=== PATIENT | male | born 1970 | race Caucasian/White ===

== ENCOUNTER 2017-02-02 12:09 | Emergency (ER) | payer OTHER, MEDICAID ==
[~2017-02-02] VITALS: Ht 177.8 cm; Wt 99.8 kg
[2017-02-02 12:59] LABS: *BILIRUBIN,URIN NEGATIVE (NEGATIVE); *BLOOD, URINE Trace-lysed (NEGATIVE); *CLARITY,URINE CLEAR (CLEAR); *COLOR,URINE YELLOW (YELLOW); *KETONES,URINE NEGATIVE (NEGATIVE); *PROTEIN,URINE NEGATIVE (NEGATIVE); *UROBILINOGEN,URINE 0.2 E.U./dl (NORMAL); LEUKOCYTE ESTERASE ,URINE NEGATIVE (NEGATIVE); NITRITE, URINE NEGATIVE (NEGATIVE)
[2017-02-02 13:03] LABS: UGLUCOSE 2+ (NEGATIVE)
[2017-02-02 13:07] LABS: BACTERIA,URINE FEW /HPF (NONE SEEN); SQUAMOUS EPITHELIAL CELL,UR FEW /HPF (NONE SEEN)
--- NOTE | 2017-02-02 13:15 | NUR ---
Patient discharged to home in stable conditon. Written and verbal after care instructions given. Patient verbalizes understanding of instructions. Stressed f/u with pmd.
== END 2017-02-02 13:16 | disposition home or self-care (01) ==
LOC: ER 12:09
DX: S90.821A Blister (nonthermal), right foot, initial encounter (principal); E11.9 Type 2 diabetes mellitus without complications; I10 Essential (primary) hypertension; E78.5 Hyperlipidemia, unspecified; F10.20 Alcohol dependence, uncomplicated; Z88.6 Allergy status to analgesic agent; X58.XXXA Exposure to other specified factors, initial encounter; Y93.89 Activity, other specified; Y99.8 Other external cause status; Y92.89 Other specified places as the place of occurrence of the external cause
CPT/HCPCS: 81001; 82962; 99283; A4663

== ENCOUNTER 2017-05-29 08:04 | Emergency (ER) | payer MEDICAID, OTHER ==
[~2017-05-29] VITALS: Ht 175.3 cm; Wt 124.7 kg
--- NOTE | 2017-05-29 08:34 | NUR ---
Accuchek = 244, pt states he has not taken his Metformin for a few months, Dr. Chauhan notified.
[2017-05-29 09:02] LABS: *BLOOD, URINE 1+ (NEGATIVE); *COLOR,URINE YELLOW (YELLOW); *KETONES,URINE 3+ (NEGATIVE); *PROTEIN,URINE 2+ (NEGATIVE); LEUKOCYTE ESTERASE ,URINE TRACE (NEGATIVE); NITRITE, URINE NEGATIVE (NEGATIVE)
[2017-05-29 09:12] LABS: *BILIRUBIN,URIN NEGATIVE (NEGATIVE); *CLARITY,URINE HAZY (CLEAR); UGLUCOSE 2+ (NEGATIVE)
[2017-05-29 09:14] LABS: BACTERIA,URINE FEW /HPF (NONE SEEN); SQUAMOUS EPITHELIAL CELL,UR FEW /HPF (NONE SEEN)
[2017-05-29 09:36] LABS: BASOPHILS # (AUTO) 0.1 K/uL (0.0-8.0); BASOPHILS % (AUTO) 0.8 % (0.0-2.0); EOSINOPHILS # (AUTO) 0.1 K/uL (0.0-0.7); EOSINOPHILS % (AUTO) 1.2 % (0.0-7.0); HEMATOCRIT 50.2 % (40-50); HEMOGLOBIN 17.4 G/DL (14.0-18.0); LYMPHOCYTES # (AUTO) 1.4 K/UL (0.8-4.8); LYMPHOCYTES % (AUTO) 21.4 % (20.5-51.5); MEAN CORPUSCULAR HEMOGLOBIN 31.9 UUG (27.0-31.0); MEAN CORPUSCULAR HGB CONC 35 g/dL (32.0-37.0); MEAN CORPUSCULAR VOLUME 91.9 FL (82.0-92.0); MONOCYTES # (AUTO) 0.5 K/UL (0.1-1.30); MONOCYTES % (AUTO) 7.2 % (0.0-11.0); NEUTROPHILS # (AUTO) 4.3 K/UL (1.8-8.9); NEUTROPHILS % (AUTO) 69.4 % (38.5-71.5); PLATELET COUNT (AUTO) 112 K/UL (150-450); RED BLOOD CELL COUNT(AUTO) 5.47 MIL/UL (4.7-6.1); WHITE BLOOD COUNT (AUTO) 6.4 K/UL (4.0-11.2)
[2017-05-29 09:43] LABS: CREATININE 0.7 mg/dL (0.6-1.3); POTASSIUM 4.1 mmol/L (3.5-5.1)
[2017-05-29 09:44] LABS: ETHANOL < 3 MG/DL (0-0)
[2017-05-29] MEDS ORDERED: IV NORMAL SALINE 1000 ML BAG IV ONE (09:45)
[2017-05-29 09:49] LABS: TOTAL PROTEIN, SERUM 8.5 g/dL (6.4-8.2)
--- NOTE | 2017-05-29 10:40 | NUR ---
Patient discharged to home in stable conditon. Written and verbal after care instructions given. Patient verbalizes understanding of instructions. Stressed follow up with pmd or return to ER for worsening s/s. Pt was given extensive ACI about management of DM by Dr. Chauhan and myself.
[2017-05-29 10:41] VITALS: BP 134/93
== END 2017-05-29 10:44 | disposition home or self-care (01) ==
LOC: ER 08:04
DX: E11.9 Type 2 diabetes mellitus without complications (principal); Z91.14 Patient's other noncompliance with medication regimen; F10.20 Alcohol dependence, uncomplicated; I10 Essential (primary) hypertension; E78.5 Hyperlipidemia, unspecified
CPT/HCPCS: 36415; 80053; 81001; 82962; 85025; 96360; 99284; A4663; G0480; J7030

== ENCOUNTER 2017-12-09 19:13 | Emergency (ER) | payer OTHER ==
[~2017-12-09] VITALS: Ht 175.3 cm; Wt 124.7 kg
--- NOTE | 2017-12-09 20:33 | NUR ---
pt walked into ED w/ c/o R eye pain x1 day. pt in no acute distress, speaking in clear and complete sentences. able to make needs known.
[2017-12-09] MEDS ORDERED: FLUORESCEIN SODIUM 1 MG STRIP ONE (23:26)
[2017-12-09] MEDS ORDERED: TETRACAINE HCL 0.5% OPHT DROP 2 ML BOTTLE ONE (23:26)
[2017-12-09] MEDS ORDERED: TETRACAINE HCL 0.5% OPHT DROP 2 ML BOTTLE OP ONE (23:30)
[2017-12-09] MEDS ORDERED: FLUORESCEIN SODIUM 1 MG STRIP OP ONE (23:30)
[2017-12-10 07:19] VITALS: BP 138/88
== END 2017-12-10 01:15 | disposition home or self-care (01) ==
LOC: ER 19:13
DX: H40.20X0 Unspecified primary angle-closure glaucoma, stage unspecified (principal); I10 Essential (primary) hypertension; E11.9 Type 2 diabetes mellitus without complications; Z88.5 Allergy status to narcotic agent; Z88.8 Allergy status to other drugs, medicaments and biological substances
CPT/HCPCS: A4663

== ENCOUNTER 2018-11-04 11:12 | Inpatient (IN) | payer OTHER ==
[~2018-11-04] VITALS: Ht 172.7 cm; Wt 122.5 kg
[2018-11-04] MEDS ORDERED: IV NORMAL SALINE 1000 ML BAG IV ONE (11:45)
[2018-11-04] MEDS ORDERED: CLINDAMYCIN PHOSPHATE IV 600 MG in IV DEXTROSE 5% 100 ML IV ONE (11:45)
[2018-11-04] MEDS ORDERED: VANCOMYCIN IV 1,000 MG in IV DEXTROSE 5% 250 ML IV ONE (11:45)
[2018-11-04] MEDS ORDERED: VANCOMYCIN IV 200 ML ONE (11:56)
[2018-11-04] MEDS ORDERED: CLINDAMYCIN PHOSPHATE 600 MG/4 ML VIAL ONE (11:56)
[2018-11-04 12:03] LABS: BASOPHILS # (AUTO) 0.1 K/uL (0.0-8.0); BASOPHILS % (AUTO) 0.9 % (0.0-2.0); EOSINOPHILS # (AUTO) 0.1 K/uL (0.0-0.7); EOSINOPHILS % (AUTO) 1.3 % (0.0-7.0); HEMATOCRIT 43.4 % (36.7-47.1); HEMOGLOBIN 15.4 g/dL (12.5-16.3); LYMPHOCYTES # (AUTO) 1.8 K/uL (20.0-40.0); LYMPHOCYTES % (AUTO) 29.7 % (20.5-51.5); MEAN CORPUSCULAR HEMOGLOBIN 32.3 uug (23.8-33.4); MEAN CORPUSCULAR HGB CONC 36 g/dL (32.5-36.3); MEAN CORPUSCULAR VOLUME 91.1 fL (73.0-96.2); MONOCYTES # (AUTO) 0.3 K/uL (2.0-10.0); MONOCYTES % (AUTO) 5.4 % (0.0-11.0); NEUTROPHILS # (AUTO) 3.8 K/uL (1.8-8.9); NEUTROPHILS % (AUTO) 62.7 % (38.5-71.5); PLATELET COUNT (AUTO) 142 K/uL (152-348); RED BLOOD CELL COUNT(AUTO) 4.77 MIL/uL (4.06-5.63); WHITE BLOOD COUNT (AUTO) 6.1 K/uL (3.6-10.2)
[2018-11-04 12:10] LABS: CREATININE 0.8 mg/dL (0.6-1.3)
--- NOTE | 2018-11-04 12:12 | NUR ---
PT IS IN ROOM #2B. DR PUGH EVALUATED THE PT.
[2018-11-04 12:15] LABS: BILIRUBIN,DIRECT 0.2 mg/dL (0.0-0.2); BILIRUBIN,TOTAL 0.5 mg/dL (0.2-1.0); TOTAL PROTEIN, SERUM 8.8 g/dL (6.4-8.2)
[2018-11-04 13:50] VITALS: BP 110/74
--- NOTE | 2018-11-04 15:11 | NUR ---
REPORT WAS GIVEN TO RN M/S. PT WAS DRANSFERED TO ROOM #230.
[2018-11-04 15:50] VITALS: BP 130/85
--- NOTE | 2018-11-04 16:00 | NUR ---
48 year old male received from er via [facility] for cellulites of left foot.pt is axox3 .v/s are stable call light with in reach md called for admission orders
[2018-11-04] MEDS ORDERED: Z GUARD REMEDY PASTE 57 GM TUBE TOP PRN (19:15)
[2018-11-04] MEDS ORDERED: DEXTROSE 50% 50 ML DISP.SYRIN IV PRN (19:15)
[2018-11-04] MEDS ORDERED: ZOLPIDEM 5 MG TABLET PO PRN (19:15)
[2018-11-04] MEDS ORDERED: ONDANSETRON 4 MG/2 ML VIAL IV PRN (19:15)
[2018-11-04] MEDS ORDERED: MAGNESIUM HYDROXIDE 30 ML LIQUID UDC PO PRN (19:15)
--- NOTE | 2018-11-04 20:16 | NUR ---
CLINICAL PHARMACY NOTE: VANCOMYCIN PHARMACY TO DOSE Subjective: To start vancomycin in this 48 y/o male for indication of cellulitis Objective: wegith 122kg height 172cm BUN 7 Scr 0.8 Wbc 6.1 temp 98.3 1gm in ER 11/04 @ 1100 Assessment/Plan To start regimen of 2gm q10h for estimated torugh of 15.26, first dose tonight at 2100. Will order trough before 4th scheduled dose (not ordered). Will follow
[2018-11-04 20:45] VITALS: BP 129/77
[2018-11-04] MEDS: VANCOMYCIN IV 2,000 MG in IV DEXTROSE 5% 500 ML IV SCH (21:23)
[2018-11-04] MEDS: BLOOD SUGAR DIAGNOSTIC 1 EACH STRIP VI SCH (22:21)
[2018-11-04] MEDS: INSULIN REGULAR, HUMAN 300 UNIT/3 ML VIAL SQ PRN (22:28)
[2018-11-05] MEDS: CLINDAMYCIN PHOSPHATE IV 600 MG in IV DEXTROSE 5% 100 ML IV SCH ×4 (00:25→23:46)
[2018-11-05 05:06] VITALS: BP 139/74
[2018-11-05] MEDS: VANCOMYCIN IV 2,000 MG in IV DEXTROSE 5% 500 ML IV SCH ×2 (05:44→16:31)
[2018-11-05 06:29] LABS: BASOPHILS % (AUTO) 0.3 % (0.0-2.0); EOSINOPHILS # (AUTO) 0.1 K/uL (0.0-0.7); HEMATOCRIT 40.4 % (36.7-47.1); HEMOGLOBIN 14.5 g/dL (12.5-16.3); LYMPHOCYTES % (AUTO) 18.2 % (20.5-51.5); MEAN CORPUSCULAR HEMOGLOBIN 32.2 uug (23.8-33.4); MEAN CORPUSCULAR HGB CONC 36 g/dL (32.5-36.3); MONOCYTES # (AUTO) 0.4 K/uL (2.0-10.0); MONOCYTES % (AUTO) 6.8 % (0.0-11.0); NEUTROPHILS # (AUTO) 4.2 K/uL (1.8-8.9); NEUTROPHILS % (AUTO) 73.7 % (38.5-71.5); PLATELET COUNT (AUTO) 124 K/uL (152-348); RED BLOOD CELL COUNT(AUTO) 4.49 MIL/uL (4.06-5.63); WHITE BLOOD COUNT (AUTO) 5.8 K/uL (3.6-10.2)
[2018-11-05] MEDS: PANTOPRAZOLE SODIUM 40 MG TABLET.DR PO SCH (06:40)
[2018-11-05] MEDS: BLOOD SUGAR DIAGNOSTIC 1 EACH STRIP VI SCH ×4 (06:40→22:05)
[2018-11-05 07:27] LABS: CREATININE 0.8 mg/dL (0.6-1.3); MAGNESIUM 1.4 mg/dL (1.8-2.4); PHOSPHOROUS 3.3 mg/dL (2.5-4.9); POTASSIUM 3.7 mmol/L (3.5-5.1)
[2018-11-05] MEDS: INSULIN REGULAR, HUMAN 300 UNIT/3 ML VIAL SQ PRN ×4 (09:06→22:05)
--- NOTE | 2018-11-05 10:11 | NUR ---
CLINICAL PHARMACY NOTE: VANCOMYCIN PHARMACY TO DOSE Subjective: To continue vancomycin in this 48 y/o male for indication of cellulitis Objective: weight 122kg height 172cm BUN 9 Scr 0.8 Wbc 5.8 temp 98.1 1gm in ER 11/04 @ 1100 Assessment/Plan Will continue same dose of vanco 2gm IVPB q10h for today. 3rd dose today at 1600. Will order trough before 4th scheduled dose (ordered for 11/06 at 0145am). Pharmacist shall review the level in am & adjust the dose if needed. Will follow Addendum: 11/05/18 at 1018 by RUMA HOLLINGSWORTH ADM RN HAS BEEN INFORMED TO HOLD 0215 AM DOSE IF VANCO TROUGH IS ABOVE 20 MCG/ML
[2018-11-05] MEDS: SODIUM HYPOCHLORITE 0.125% 473 ML BOTTLE TP SCH (10:45)
[2018-11-05] MEDS: MAGNESIUM SULFATE/D5W 100 ML IV SCH ×2 (10:48→11:39)
[2018-11-05] MEDS: MORPHINE SULFATE 4 MG/1 ML DISP.SYRIN IV PRN ×2 (10:48→11:34)
--- NOTE | 2018-11-05 11:15 | NUR ---
0700 RECEIVED REPORT FROM JOSEFINA HICKEY. ASSUMED CARE OF PATIENT. PATIENT IN BED RESTING WITH NO SIGNS OF DISTRESS OR DISCOMFORT AT THIS TIME. PATIENT VITALS SIGNS STABLE. PATIENT ALERT AND ORIENTED TIMES 3. [address] WITH DEBRIDEMENT OF THE LEFT FOOT. PATIENT TOLERATED WELL. 1100 PATIENT GIVEN MORPHINE 4MG IV PER DR ORDERS FOR PAIN 10/10 IN HIS LEFT FOOT. PATIENT ALSO GIVEN 2 BAGS MAGNESIUM IVPB PER DR ORDERS.PATIENT MEDICATION COMPLIANT WITH MEDICATIONS PATIENT DENIES PAIN AT THIS TIME. WILL CONTINUE TO MONITOR THROUGHOUT SHIFT. AVRIL RANDALL RN
[2018-11-05 11:58] VITALS: BP 134/87
--- NOTE | 2018-11-05 12:00 | NUR ---
RECEIVED HAND OFF REPRT FROM AVRIL HICKEY
[2018-11-05 16:00] VITALS: BP 110/79
[2018-11-05] MEDS: PROTEIN SUPPLEMENT (PROSTAT) 30 ML LIQUID PO SCH (16:31)
--- NOTE | 2018-11-05 19:45 | NUR ---
Received pt resting in bed, awake, alert and oriented x4. Discussed and reviewed plan of care with pt, pt cooperative with care. Pt denies pain or dizziness at this time. No acute distress noted. Antibiotic therapy noted. IV intact and patent with no s/s of redness or swelling. Safety precautions in place, call light within reach. Will continue to monitor.
[2018-11-05 20:52] VITALS: BP 131/88
[2018-11-05] MEDS: CULTURELLE CAPSULE PO SCH (21:00)
[2018-11-06] MEDS: MORPHINE SULFATE 4 MG/1 ML DISP.SYRIN IV PRN ×2 (00:47→04:47)
[2018-11-06] MEDS: VANCOMYCIN IV 2,000 MG in IV DEXTROSE 5% 500 ML IV SCH ×4 (01:36→20:48)
--- NOTE | 2018-11-06 02:15 | NUR ---
VANCO TROUGH LAB. 20.7. Vanco medication not administered this shift.
[2018-11-06 05:30] VITALS: BP 130/75
[2018-11-06] MEDS ORDERED: CLINDAMYCIN PHOSPHATE 600 MG/4 ML VIAL ONE (05:30)
[2018-11-06] MEDS: CLINDAMYCIN PHOSPHATE IV 600 MG in IV DEXTROSE 5% 100 ML IV SCH ×3 (05:50→22:57)
--- NOTE | 2018-11-06 06:17 | NUR ---
No significant changes t/o shift. Pain med given x2 with effect. Pt denies pain at this time. No acute distress noted. Call light within reach, will continue to monitor.
[2018-11-06] MEDS: PANTOPRAZOLE SODIUM 40 MG TABLET.DR PO SCH (06:18)
[2018-11-06] MEDS: BLOOD SUGAR DIAGNOSTIC 1 EACH STRIP VI SCH ×4 (06:25→20:59)
[2018-11-06] MEDS: MULTIVITAMINS,THERAPEUTIC TABLET PO SCH (08:00)
[2018-11-06] MEDS: ZINC SULFATE 220 MG CAPSULE PO SCH (08:00)
[2018-11-06] MEDS: ASCORBIC ACID 500 MG TABLET PO SCH (08:00)
[2018-11-06] MEDS: CULTURELLE CAPSULE PO SCH ×2 (08:00→20:48)
[2018-11-06] MEDS: INSULIN REGULAR, HUMAN 300 UNIT/3 ML VIAL SQ PRN ×4 (08:30→20:57)
[2018-11-06] MEDS: PROTEIN SUPPLEMENT (PROSTAT) 30 ML LIQUID PO SCH ×2 (08:33→16:22)
[2018-11-06] MEDS: SODIUM HYPOCHLORITE 0.125% 473 ML BOTTLE TP SCH (08:33)
--- NOTE | 2018-11-06 09:10 | NUR ---
PATIENT REFUSES WOUND TREATMENT AND WANTS TO DO TREATMENT WHEN PODIATRISTS COMES TO SEE HIM.
[2018-11-06 11:00] VITALS: BP 102/56
--- NOTE | 2018-11-06 12:26 | NUR ---
CLINICAL PHARMACY NOTE: VANCOMYCIN PHARMACY TO DOSE Subjective: To continue vancomycin in this 48 y/o male for indication of cellulitis Objective: weight 122kg height 172cm BUN 9 (2/2) Scr 0.8 (2/2) Wbc 5.8 (2/2) temp 98 trough today at 0200 20.7 Assessment/Plan Will adjust regimen to 2gm q12h for new estimated trough of 16.4, first dose today at 0900. Will check trough before 4th scheduled dose( not ordered yet). Will follow
[2018-11-06 15:18] VITALS: BP 112/65
--- NOTE | 2018-11-06 19:50 | NUR ---
Received pt resting comfortably in bed, awake, alert and oriented x4. Discussed and reviewed plan of care, pt cooperative. Pt denies pain, chills or dizziness at this time. No acute distress noted. Antibiotic therapy during shift. Comfort measures in place, call light within reach. Will continue to monitor and carry out all orders.
[2018-11-06 20:04] VITALS: BP 110/63
--- NOTE | 2018-11-06 20:19 | NUR ---
Patient is alert and oriented x4. Patient is compliant with medication adminstration and medical regimen. Patient denies any pain or discomfort and does not want to receive morphine. Patient is able to verbalize needs and able to ambulate to use the restroom. Patient's needs have been met. Will continue to monitor and endorse plan of care to shift lab technician nurse.
[2018-11-07] MEDS: CLINDAMYCIN PHOSPHATE IV 600 MG in IV DEXTROSE 5% 100 ML IV SCH ×3 (05:02→21:00)
[2018-11-07 05:20] VITALS: BP 120/59
[2018-11-07 05:47] LABS: *BILIRUBIN,URIN NEGATIVE (NEGATIVE); *BLOOD, URINE NEGATIVE (NEGATIVE); *CLARITY,URINE CLEAR (CLEAR); *COLOR,URINE YELLOW (YELLOW); *KETONES,URINE 1+ (NEGATIVE); LEUKOCYTE ESTERASE ,URINE NEGATIVE (NEGATIVE); NITRITE, URINE NEGATIVE (NEGATIVE); PH,URINE 6.5 (5.0-8.0)
[2018-11-07 05:51] LABS: UGLUCOSE 3+ (NEGATIVE)
[2018-11-07 06:11] LABS: BACTERIA,URINE NONE SEEN /HPF (NONE SEEN); RBC,URINE 0-3 /HPF (0-3); SQUAMOUS EPITHELIAL CELL,UR MODERATE /HPF (NONE SEEN)
[2018-11-07 06:13] LABS: CREATININE 0.9 mg/dL (0.6-1.3); MAGNESIUM 1.5 mg/dL (1.8-2.4); PHOSPHOROUS 3.9 mg/dL (2.5-4.9)
[2018-11-07] MEDS: PANTOPRAZOLE SODIUM 40 MG TABLET.DR PO SCH (06:33)
[2018-11-07] MEDS: BLOOD SUGAR DIAGNOSTIC 1 EACH STRIP VI SCH ×4 (06:38→20:47)
--- NOTE | 2018-11-07 06:50 | NUR ---
No significant changes t/o the shift, rested well in between care. All orders carried out. Pt cooperative with care. Pt denies pain at this time. Pt shows no s/s of acute distress. Comfort measures maintained, call light within reach. Will endorse plan of care accordingly.
--- NOTE | 2018-11-07 07:00 | NUR ---
Beginning of shift Patient is alert and oriented x4. Patient denies any pain or discomfort and does not want to receive morphine. Patient is able to verbalize needs and able to ambulate to use the restroom. Will continue to monitor and care plan
[2018-11-07 07:19] LABS: BASOPHILS % (AUTO) 0.5 % (0.0-2.0); EOSINOPHILS # (AUTO) 0.1 K/uL (0.0-0.7); EOSINOPHILS % (AUTO) 1.7 % (0.0-7.0); HEMATOCRIT 40.4 % (36.7-47.1); HEMOGLOBIN 14.5 g/dL (12.5-16.3); LYMPHOCYTES # (AUTO) 1.4 K/uL (20.0-40.0); LYMPHOCYTES % (AUTO) 22.4 % (20.5-51.5); MEAN CORPUSCULAR HEMOGLOBIN 32.5 uug (23.8-33.4); MEAN CORPUSCULAR HGB CONC 36 g/dL (32.5-36.3); MEAN CORPUSCULAR VOLUME 90.3 fL (73.0-96.2); MONOCYTES # (AUTO) 0.5 K/uL (2.0-10.0); MONOCYTES % (AUTO) 7.8 % (0.0-11.0); NEUTROPHILS # (AUTO) 4.3 K/uL (1.8-8.9); NEUTROPHILS % (AUTO) 67.6 % (38.5-71.5); PLATELET COUNT (AUTO) 120 K/uL (152-348); RED BLOOD CELL COUNT(AUTO) 4.47 MIL/uL (4.06-5.63); WHITE BLOOD COUNT (AUTO) 6.4 K/uL (3.6-10.2)
[2018-11-07] MEDS: INSULIN REGULAR, HUMAN 300 UNIT/3 ML VIAL SQ PRN ×4 (08:21→20:50)
[2018-11-07] MEDS: CULTURELLE CAPSULE PO SCH ×2 (08:52→20:52)
[2018-11-07] MEDS: THIAMINE HCL 100 MG TABLET PO SCH (08:52)
[2018-11-07] MEDS: FOLIC ACID 1 MG TABLET PO SCH (08:52)
[2018-11-07] MEDS: ZINC SULFATE 220 MG CAPSULE PO SCH (08:52)
[2018-11-07] MEDS: MULTIVITAMINS,THERAPEUTIC TABLET PO SCH (08:52)
[2018-11-07] MEDS: ASCORBIC ACID 500 MG TABLET PO SCH (08:52)
[2018-11-07] MEDS: PROTEIN SUPPLEMENT (PROSTAT) 30 ML LIQUID PO SCH ×2 (08:55→17:00)
[2018-11-07] MEDS: SODIUM HYPOCHLORITE 0.125% 473 ML BOTTLE TP SCH (08:55)
[2018-11-07] MEDS: VANCOMYCIN IV 2,000 MG in IV DEXTROSE 5% 500 ML IV SCH (10:13)
[2018-11-07 10:58] VITALS: BP 120/77
--- NOTE | 2018-11-07 11:54 | NUR ---
BLOOD SUGAR [address] JACKSON IS NOTIFIED ( HE IS ON THE FLOOR AT THE MOMENT), HE SAID TO GIVE INSULIN ORDERED AND HE WILL FOLLOW UP WITH IT.
--- NOTE | 2018-11-07 12:28 | NUR ---
CLINICAL PHARMACY NOTE: VANCOMYCIN PHARMACY TO DOSE Subjective: To continue vancomycin in this 48 y/o male for indication of cellulitis Objective: weight 122kg height 172cm BUN 8 Scr 0.9 Wbc 6.4 temp 98.3 trough yesterday at 0200 20.7 Assessment/Plan Will continue regimen of Vancomycin 2gm q12h for new estimated trough of 16.4, third dose today at 0900. Will check trough before 4th scheduled dose( ordered for tonight at 2030, will endorse nurse to hold dose for over 20). Will follow
[2018-11-07] MEDS: MAGNESIUM SULFATE/D5W 100 ML IV SCH ×2 (12:43→14:00)
[2018-11-07 15:01] VITALS: BP 128/78
[2018-11-07] MEDS: LORAZEPAM 2 MG/1 ML VIAL IV PRN (15:20)
--- NOTE | 2018-11-07 19:36 | NUR ---
END OF SHIFT Patient is alert and oriented x4. Patient denies any pain or discomfort Patient is able to verbalize needs and able to ambulate to use the restroom. ORDERS CARED OUT SAFETY REINFORCED
--- NOTE | 2018-11-07 19:45 | NUR ---
Received pt resting comfortably in bed. AxO x4. Discussed and reviewed plan of care, pt cooperative. Antibiotic therapy noted. Denies pain. No acute distress. Comfort measures in place, call light within reach. Will continue to monitor.
[2018-11-07 20:07] VITALS: BP 112/73
[2018-11-07] MEDS: INSULIN GLARGINE,HUM 300 UNITS/3 ML CARTRIDGE SQ SCH (20:49)
[2018-11-08] MEDS: CLINDAMYCIN PHOSPHATE IV 600 MG in IV DEXTROSE 5% 100 ML IV SCH ×3 (05:15→21:09)
[2018-11-08 06:13] VITALS: BP 101/66
[2018-11-08] MEDS: PANTOPRAZOLE SODIUM 40 MG TABLET.DR PO SCH (06:15)
[2018-11-08] MEDS: BLOOD SUGAR DIAGNOSTIC 1 EACH STRIP VI SCH ×4 (06:15→20:42)
[2018-11-08 08:21] LABS: CREATININE 0.8 mg/dL (0.6-1.3); MAGNESIUM 1.7 mg/dL (1.8-2.4)
[2018-11-08 08:46] LABS: BASOPHILS % (AUTO) 0.5 % (0.0-2.0); EOSINOPHILS # (AUTO) 0.1 K/uL (0.0-0.7); EOSINOPHILS % (AUTO) 1.9 % (0.0-7.0); HEMATOCRIT 41.4 % (36.7-47.1); HEMOGLOBIN 14.9 g/dL (12.5-16.3); LYMPHOCYTES # (AUTO) 1.3 K/uL (20.0-40.0); LYMPHOCYTES % (AUTO) 21.6 % (20.5-51.5); MEAN CORPUSCULAR HEMOGLOBIN 32.7 uug (23.8-33.4); MEAN CORPUSCULAR HGB CONC 36 g/dL (32.5-36.3); MEAN CORPUSCULAR VOLUME 90.8 fL (73.0-96.2); MONOCYTES # (AUTO) 0.5 K/uL (2.0-10.0); MONOCYTES % (AUTO) 8.5 % (0.0-11.0); NEUTROPHILS # (AUTO) 4.1 K/uL (1.8-8.9); NEUTROPHILS % (AUTO) 67.5 % (38.5-71.5); PLATELET COUNT (AUTO) 90 K/uL (152-348); RED BLOOD CELL COUNT(AUTO) 4.56 MIL/uL (4.06-5.63)
[2018-11-08] MEDS: INSULIN REGULAR, HUMAN 300 UNIT/3 ML VIAL SQ PRN ×4 (08:50→20:44)
[2018-11-08] MEDS: ZINC SULFATE 220 MG CAPSULE PO SCH (08:51)
[2018-11-08] MEDS: THIAMINE HCL 100 MG TABLET PO SCH (08:51)
[2018-11-08] MEDS: CULTURELLE CAPSULE PO SCH ×2 (08:51→20:42)
[2018-11-08] MEDS: FOLIC ACID 1 MG TABLET PO SCH (08:51)
[2018-11-08] MEDS: MULTIVITAMINS,THERAPEUTIC TABLET PO SCH (08:51)
[2018-11-08] MEDS: ASCORBIC ACID 500 MG TABLET PO SCH (08:51)
[2018-11-08] MEDS: PROTEIN SUPPLEMENT (PROSTAT) 30 ML LIQUID PO SCH ×2 (08:52→16:45)
[2018-11-08] MEDS: SODIUM HYPOCHLORITE 0.125% 473 ML BOTTLE TP SCH (08:56)
[2018-11-08 09:03] LABS: EOSINOPHILS % (MANUAL) 2 % (0-8); LYMPHOCYTES % (MANUAL) 24 % (20-40); MONOCYTES % (MANUAL) 3 % (2-10); NEUTROPHILS % (MANUAL) 71 % (42-75)
[2018-11-08] MEDS ORDERED: MAGNESIUM OXIDE 400 MG TABLET PO ONE ×2 (12:00)
[2018-11-08 12:05] VITALS: BP 123/87
[2018-11-08 16:00] VITALS: BP 111/73
[2018-11-08] MEDS: MORPHINE SULFATE 4 MG/1 ML DISP.SYRIN IV PRN (16:32)
--- NOTE | 2018-11-08 19:20 | NUR ---
RECEIVED PATIENT SITTING IN BED. AAOX4. IN NO ACUTE DISTRESS. DENIES ANY PAIN OR SOB. VS WNL. IV SITE ON LEFT FA INTACT AND PATENT. NEEDS ASSESSED AND ATTENDED TO. SAFETY MEASURE INITIATED AND CALL TAVERA WITHIN REACH.
[2018-11-08 20:00] VITALS: BP 127/80
[2018-11-08] MEDS: INSULIN GLARGINE,HUM 300 UNITS/3 ML CARTRIDGE SQ SCH (20:45)
[2018-11-09 04:00] VITALS: BP 113/77
[2018-11-09] MEDS: CLINDAMYCIN PHOSPHATE IV 600 MG in IV DEXTROSE 5% 100 ML IV SCH ×3 (05:02→21:52)
[2018-11-09] MEDS: PANTOPRAZOLE SODIUM 40 MG TABLET.DR PO SCH (06:22)
--- NOTE | 2018-11-09 06:38 | NUR ---
AAOX4. IN NO ACUTE DISTRESS. PICC LINE ON RIGHT UPPER ARM INTACT AND PATENT. NO ADVERSE REACTION FORM IV ABX. DRESSING ON LEFT FOOT INTACT. NEEDS ASSESSED AND ATTENDED TO. SAFETY MEASURE MAINTAINED AND CALL TAVERA WITHIN REACH. Addendum: 11/10/18 at 0653 by FLORES ORNELAS RN NO PICC LINE. IV SITE ON LEFT FA INTACT AND PATENT.
[2018-11-09] MEDS: BLOOD SUGAR DIAGNOSTIC 1 EACH STRIP VI SCH ×4 (06:52→20:30)
[2018-11-09 06:53] LABS: CREATININE 0.8 mg/dL (0.6-1.3); MAGNESIUM 1.6 mg/dL (1.8-2.4); POTASSIUM 3.7 mmol/L (3.5-5.1)
--- NOTE | 2018-11-09 07:15 | NUR ---
PATIENT RECEIVED AAOX4. PT SHOWS NO SIGNS OF ACUTE DISTRESS, LT. FA IV INTACT. DRESSING ON LT. FOOT INTACT. CALL LIGHT WITHIN REACH. SAFETY AND COMFORT PROVIDED. ALL NEEDS ARE MET. WILL CONTINUE TO MONITOR.
[2018-11-09] MEDS: CULTURELLE CAPSULE PO SCH ×2 (08:23→20:22)
[2018-11-09] MEDS: FOLIC ACID 1 MG TABLET PO SCH (08:23)
[2018-11-09] MEDS: ZINC SULFATE 220 MG CAPSULE PO SCH (08:23)
[2018-11-09] MEDS: THIAMINE HCL 100 MG TABLET PO SCH (08:23)
[2018-11-09] MEDS: SODIUM HYPOCHLORITE 0.125% 473 ML BOTTLE TP SCH (08:23)
[2018-11-09] MEDS: ASCORBIC ACID 500 MG TABLET PO SCH (08:24)
[2018-11-09] MEDS: PROTEIN SUPPLEMENT (PROSTAT) 30 ML LIQUID PO SCH ×2 (08:24→17:02)
[2018-11-09] MEDS: MULTIVITAMINS,THERAPEUTIC TABLET PO SCH (08:24)
[2018-11-09] MEDS: INSULIN REGULAR, HUMAN 300 UNIT/3 ML VIAL SQ PRN ×2 (08:26→11:56)
[2018-11-09 11:33] VITALS: BP 121/79
[2018-11-09] MEDS: MAGNESIUM SULFATE/D5W 100 ML IV SCH ×2 (11:57→13:17)
[2018-11-09] MEDS ORDERED: DEXTROSE 50% 50 ML DISP.SYRIN IV PRN (13:45)
[2018-11-09 15:36] VITALS: BP 122/83
[2018-11-09] MEDS: INSULIN REGULAR, HUMAN 300 UNITS/3 ML VIAL SQ PRN ×2 (16:50→20:27)
--- NOTE | 2018-11-09 19:01 | NUR ---
PT.AOX4 THROUGHOUT THE SHIFT. COMPLIANT WITH ALL CARE. PT SHOWS NO SIGNS OF ACUTE DISTRESS. PRESCRIBED MEDICATION GIVEN AND PT TOLERATED IT WELL. LT. FOOT DRESSING CHANGED ORDERED. CALL LIGHT WITHIN REACH. SAFETY AND COMFORT PROVIDED. ALL NEEDS ARE MET. WILL ENDORSE ACCORDINGLY TO INCOMING NURSE FOR CONTINUITY OF CARE.
--- NOTE | 2018-11-09 19:20 | NUR ---
RECEIVED PATIENT LYING IN BED. AAOX4. IN NO ACUTE DISTRESS. DENIES ANY PAIN OR SOB. VS WNL. IV SITE ON LEFT FA INTACT AND PATENT. NEEDS ASSESSED AND ATTENDED TO. SAFETY MEASURE INITIATED AND CALL TAVERA WITHIN REACH.
[2018-11-09 19:36] VITALS: BP 130/85
[2018-11-09] MEDS: INSULIN GLARGINE,HUM 300 UNITS/3 ML CARTRIDGE SQ SCH (20:28)
--- NOTE | 2018-11-09 21:50 | NUR ---
PATIENT IV SITE ON LEFT FA NOTED LEAKING AND PATIENT COMPLAINED OF PAIN AND TENDERNESS ON SITE. REMOVED IV ON LEFT FA. STARTED NEW IV LINE ON RIGHT FA #20 GAUGE.
[2018-11-09] MEDS: LORAZEPAM 2 MG/1 ML VIAL IV PRN (21:57)
[2018-11-10 03:58] VITALS: BP 103/59
[2018-11-10] MEDS: PANTOPRAZOLE SODIUM 40 MG TABLET.DR PO SCH (06:35)
[2018-11-10] MEDS: BLOOD SUGAR DIAGNOSTIC 1 EACH STRIP VI SCH ×4 (06:35→20:20)
[2018-11-10] MEDS: CLINDAMYCIN PHOSPHATE IV 600 MG in IV DEXTROSE 5% 100 ML IV SCH ×2 (06:35→13:42)
[2018-11-10 06:45] LABS: CREATININE 0.7 mg/dL (0.6-1.3); MAGNESIUM 1.7 mg/dL (1.8-2.4); POTASSIUM 4.1 mmol/L (3.5-5.1)
--- NOTE | 2018-11-10 06:52 | NUR ---
AAOX4. IN NO ACUTE DISTRESS. DENIES ANY PAIN OR SOB. IV ON RIGHT FA INTACT AND PATENT. NO ADVERSE REACTION FORM IV ABX. DRESSING ON LEFT FOOT INTACT. NEEDS ASSESSED AND ATTENDED TO. SAFETY MEASURE MAINTAINED AND CALL TAVERA WITHIN REACH.
--- NOTE | 2018-11-10 07:10 | NUR ---
received report from job foreman nurse, patient in bed no distress noted at this time, bed in low position, side rails up x2. Air mattress inflated. patient is lethargic but responsive to questions. Addendum: 11/10/18 at 0904 by BAUDILIO CURRY RN Wrong patient note on prior assessment: Patient received from job foreman nurse, patient in bed awake/alert x4 no distress noted at this time, bed in low position, side rails up x2, call light in reach.
[2018-11-10] MEDS: MULTIVITAMINS,THERAPEUTIC TABLET PO SCH (08:51)
[2018-11-10] MEDS: ASCORBIC ACID 500 MG TABLET PO SCH (08:51)
[2018-11-10] MEDS: FOLIC ACID 1 MG TABLET PO SCH (08:52)
[2018-11-10] MEDS: THIAMINE HCL 100 MG TABLET PO SCH (08:52)
[2018-11-10] MEDS: PROTEIN SUPPLEMENT (PROSTAT) 30 ML LIQUID PO SCH ×2 (08:52→16:55)
[2018-11-10] MEDS: ZINC SULFATE 220 MG CAPSULE PO SCH (08:52)
[2018-11-10] MEDS: CULTURELLE CAPSULE PO SCH ×2 (08:52→20:15)
[2018-11-10] MEDS: SODIUM HYPOCHLORITE 0.125% 473 ML BOTTLE TP SCH (08:53)
[2018-11-10] MEDS: INSULIN REGULAR, HUMAN 300 UNIT/3 ML VIAL SQ PRN ×3 (08:54→16:53)
[2018-11-10 11:14] VITALS: BP 96/65
[2018-11-10] MEDS ORDERED: MULT-24 PO (13:38)
[2018-11-10] MEDS ORDERED: LACT1CAP57 PO (13:38)
[2018-11-10] MEDS ORDERED: ASCO500T9 PO (13:38)
[2018-11-10] MEDS ORDERED: PROT30LI PO (13:38)
[2018-11-10] MEDS ORDERED: CLIN300C3 PO (13:38)
[2018-11-10] MEDS ORDERED: SODI473S8 TP (13:38)
[2018-11-10] MEDS ORDERED: FOLI1TAB16 PO (13:38)
[2018-11-10] MEDS ORDERED: THIA100T13 PO (13:38)
[2018-11-10] MEDS ORDERED: METF-442 PO (13:40)
[2018-11-10] MEDS ORDERED: MAGNESIUM OXIDE 400 MG TABLET PO ONE (15:15)
[2018-11-10 15:22] VITALS: BP 101/61
[2018-11-10 19:00] VITALS: BP 111/73
--- NOTE | 2018-11-10 19:00 | NUR ---
Patient has been cooperative with care, no distress noted throughout shift, all needs met, report called to katherine rangel, belongings given to patient and forms signed. Pictures taken of wound on left food.
--- NOTE | 2018-11-10 19:20 | NUR ---
Received patient sitting in bed. In no acute distress. Denies any pain or SOB. Awaiting to be sampler pickup by ambulance to be discharge to [facility]. Needs assessed and attended to.
[2018-11-10] MEDS: INSULIN REGULAR, HUMAN 300 UNITS/3 ML VIAL SQ PRN (20:17)
[2018-11-10] MEDS: INSULIN GLARGINE,HUM 300 UNITS/3 ML CARTRIDGE SQ SCH (20:18)
--- NOTE | 2018-11-10 20:25 | NUR ---
Patient AAOX4. In no acute distress. VS WNL. Discharge to [facility], brass pickler by 2 paramedics via rney. Denies any pain or SOB. IV line and name tag removed..
== END 2018-11-10 20:25 | DRG 317 ==
LOC: ER 11:12 → MED 15:29
PROVIDERS: ADMIT Hospitalist; ATTEND Hospitalist
PROC: 0JBR3ZZ Excision of Left Foot Subcutaneous Tissue and Fascia, Percutaneous Approach (ICD-10-PCS; 2018-11-04)
PROC: 0KBW0ZZ Excision of Left Foot Muscle, Open Approach (ICD-10-PCS; principal; 2018-11-05)
DX: E11.621 Type 2 diabetes mellitus with foot ulcer (principal); M86.9 Osteomyelitis, unspecified; E11.42 Type 2 diabetes mellitus with diabetic polyneuropathy; D69.6 Thrombocytopenia, unspecified; E11.65 Type 2 diabetes mellitus with hyperglycemia; L97.423 Non-pressure chronic ulcer of left heel and midfoot with necrosis of muscle; B35.1 Tinea unguium; F10.20 Alcohol dependence, uncomplicated; L03.116 Cellulitis of left lower limb; B95.1 Streptococcus, group B, as the cause of diseases classified elsewhere; E78.5 Hyperlipidemia, unspecified; Z59.0 Homelessness; R60.0 Localized edema; Y90.9 Presence of alcohol in blood, level not specified; I10 Essential (primary) hypertension; E83.42 Hypomagnesemia; E66.01 Morbid (severe) obesity due to excess calories; Z68.41 Body mass index [BMI] 40.0-44.9, adult; Z71.3 Dietary counseling and surveillance; E11.69 Type 2 diabetes mellitus with other specified complication; Z91.14 Patient's other noncompliance with medication regimen
CPT/HCPCS: 36415; 71045; 73630; 83735; 84100; 85025; 87040; 87070; 87077; A4663; G0378; J1815; J2060; J2270; J3370; J3475; J3490; J7030; J7040; J7050; J7060

== ENCOUNTER 2018-12-28 20:24 | Emergency (ER) | payer OTHER ==
[~2018-12-28] VITALS: Ht 165.1 cm; Wt 104.3 kg
[~2018-12-28 20:24] MED LIST: ASCO500T9 PO; CLIN300C3 PO; FOLI1TAB16 PO; LACT1CAP57 PO; METF-442 PO; MULT-24 PO; PROT30LI PO; SODI473S8 TP; THIA100T13 PO
--- NOTE | 2018-12-28 20:45 | NUR ---
Dr. Izaguirre at bedside for MSE.
[2018-12-28 21:06] LABS: BASOPHILS % (AUTO) 0.6 % (0.0-2.0); EOSINOPHILS # (AUTO) 0.1 K/uL (0.0-0.7); EOSINOPHILS % (AUTO) 1.3 % (0.0-7.0); HEMATOCRIT 44.7 % (36.7-47.1); HEMOGLOBIN 15.5 g/dL (12.5-16.3); LYMPHOCYTES # (AUTO) 1.9 K/uL (20.0-40.0); MEAN CORPUSCULAR HEMOGLOBIN 31.2 uug (23.8-33.4); MEAN CORPUSCULAR HGB CONC 35 g/dL (32.5-36.3); MEAN CORPUSCULAR VOLUME 90.1 fL (73.0-96.2); MONOCYTES # (AUTO) 0.5 K/uL (2.0-10.0); MONOCYTES % (AUTO) 7.7 % (0.0-11.0); NEUTROPHILS # (AUTO) 3.8 K/uL (1.8-8.9); NEUTROPHILS % (AUTO) 60.4 % (38.5-71.5); PLATELET COUNT (AUTO) 119 K/uL (152-348); RED BLOOD CELL COUNT(AUTO) 4.96 MIL/uL (4.06-5.63); WHITE BLOOD COUNT (AUTO) 6.2 K/uL (3.6-10.2)
[2018-12-28 21:17] LABS: CREATININE 0.7 mg/dL (0.6-1.3); POTASSIUM 3.9 mmol/L (3.5-5.1)
--- NOTE | 2018-12-28 21:20 | NUR ---
Ultrasound at bedside.
[2018-12-28 21:23] LABS: BILIRUBIN,DIRECT 0.2 mg/dL (0.0-0.2); BILIRUBIN,TOTAL 0.8 mg/dL (0.2-1.0); TOTAL PROTEIN, SERUM 8.2 g/dL (6.4-8.2)
[2018-12-28] MEDS: IV NORMAL SALINE 500 ML BAG IV ONE (21:38)
[2018-12-28] MEDS ORDERED: METFORMIN HCL 500 MG TABLET ONE (23:30)
[2018-12-28] MEDS: METFORMIN HCL 500 MG TABLET PO ONE (23:33)
--- NOTE | 2018-12-28 23:42 | NUR ---
Patient given written and verbal discharge instructions. Patient verbalizes understanding of instructions. Patient is ambulatory with steady gait. Refuses offer of fpc placement. Patient given list of available shelters in surrounding area. Pt states he has a fpc that he goes to and will arrange his own transportation there. VSS, no acute signs of distress, all belongings taken.
== END 2018-12-28 23:45 | disposition home or self-care (01) ==
LOC: ER 20:25
DX: R60.9 Edema, unspecified (principal); E11.621 Type 2 diabetes mellitus with foot ulcer; E11.65 Type 2 diabetes mellitus with hyperglycemia; F10.10 Alcohol abuse, uncomplicated; I10 Essential (primary) hypertension; Z59.0 Homelessness; Z88.5 Allergy status to narcotic agent; Z88.8 Allergy status to other drugs, medicaments and biological substances; Z79.2 Long term (current) use of antibiotics; Z79.899 Other long term (current) drug therapy; Y90.9 Presence of alcohol in blood, level not specified
CPT/HCPCS: 36415; 83605; 83690; 85025; 85730; 87040; A4217; A4663; J7030

== ENCOUNTER 2019-09-11 10:48 | Emergency (ER) | payer OTHER ==
[~2019-09-11] VITALS: Ht 175.3 cm; Wt 124.3 kg
--- NOTE | 2019-09-11 11:28 | NUR ---
PATIENT WAS SEEN BY . AUGUSTIN, RX (INCLUDING PRECAUTIONS) AND FOLLOW UP INSTRUCTIONS GIVEN AND EXPLAINED TO PATIENT WHO STATES HE UNDERSTANDS ALL INSTRUCTIONS. HE WAS WEARING CLEAN, WARM CLOTHES. REFUSED INFO ON AA OR ANY OTHER RESOURCES...
== END 2019-09-11 11:33 | disposition home or self-care (01) ==
LOC: ER 10:48
DX: G57.92 Unspecified mononeuropathy of left lower limb (principal); I10 Essential (primary) hypertension; E11.9 Type 2 diabetes mellitus without complications; Z88.5 Allergy status to narcotic agent; Z88.8 Allergy status to other drugs, medicaments and biological substances; Z59.0 Homelessness
CPT/HCPCS: A4663

== ENCOUNTER 2019-12-23 12:21 | Emergency (ER) | payer OTHER ==
[~2019-12-23] VITALS: Ht 175.3 cm; Wt 79.4 kg
[2019-12-23] MEDS ORDERED: IBUPROFEN 800 MG TABLET PO ONE (13:15)
[2019-12-23] MEDS ORDERED: IV NORMAL SALINE 1000 ML BAG IV ONE (13:15)
[2019-12-23] MEDS ORDERED: IBUPROFEN 800 MG TABLET ONE (13:24)
[2019-12-23 13:35] LABS: BASOPHILS % (AUTO) 0.7 % (0.0-2.0); EOSINOPHILS % (AUTO) 0.2 % (0.0-7.0); HEMATOCRIT 44.5 % (36.7-47.1); HEMOGLOBIN 15.8 g/dL (12.5-16.3); LYMPHOCYTES # (AUTO) 1.3 K/uL (20.0-40.0); LYMPHOCYTES % (AUTO) 19.6 % (20.5-51.5); MEAN CORPUSCULAR HEMOGLOBIN 31.7 uug (23.8-33.4); MEAN CORPUSCULAR HGB CONC 36 g/dL (32.5-36.3); MEAN CORPUSCULAR VOLUME 89.3 fL (73.0-96.2); MONOCYTES # (AUTO) 0.9 K/uL (2.0-10.0); MONOCYTES % (AUTO) 13.8 % (0.0-11.0); NEUTROPHILS # (AUTO) 4.3 K/uL (1.8-8.9); NEUTROPHILS % (AUTO) 65.7 % (38.5-71.5); PLATELET COUNT (AUTO) 123 K/uL (152-348); RED BLOOD CELL COUNT(AUTO) 4.98 MIL/uL (4.06-5.63); WHITE BLOOD COUNT (AUTO) 6.5 K/uL (3.6-10.2)
[2019-12-23 13:43] LABS: BILIRUBIN,DIRECT 0.7 mg/dL (0.0-0.2); BILIRUBIN,TOTAL 1.6 mg/dL (0.2-1.0); CREATININE 1.2 mg/dL (0.6-1.3); POTASSIUM 3.8 mmol/L (3.5-5.1); TOTAL PROTEIN, SERUM 7.9 g/dL (6.4-8.2)
[2019-12-23 13:49] LABS: MAGNESIUM 1.8 mg/dL (1.8-2.4)
[2019-12-23 14:14] LABS: *BILIRUBIN,URIN 2+ (NEGATIVE); *BLOOD, URINE 2+ (NEGATIVE); *KETONES,URINE 1+ (NEGATIVE); *UROBILINOGEN,URINE >=8.0 E.U./dl (NORMAL); LEUKOCYTE ESTERASE ,URINE TRACE (NEGATIVE); NITRITE, URINE NEGATIVE (NEGATIVE); PH,URINE 5.5 (5.0-8.0); UGLUCOSE 2+ (NEGATIVE)
[2019-12-23 14:19] LABS: *CLARITY,URINE SLIGHTLY CLOUDY (CLEAR); *COLOR,URINE ORANGE (YELLOW)
[2019-12-23 14:24] LABS: BACTERIA,URINE FEW /HPF (NONE SEEN); MUCUS,URINE MANY /LPF (0-FEW); SQUAMOUS EPITHELIAL CELL,UR MODERATE /HPF (NONE SEEN); WBC,URINE 20-50 /HPF (0-3)
[2019-12-23 14:27] LABS: SPERM,URINE FEW /HPF (NONE SEEN)
[2019-12-23] MEDS ORDERED: LEVOFLOXACIN 750 MG TABLET PO ONE (14:45)
[2019-12-23] MEDS ORDERED: LEVOFLOXACIN 750 MG TABLET ONE (14:54)
[2019-12-23 15:20] VITALS: BP 150/89
== END 2019-12-23 15:21 | disposition home or self-care (01) ==
LOC: ER 12:28
DX: B08.5 Enteroviral vesicular pharyngitis (principal); E86.0 Dehydration; N17.9 Acute kidney failure, unspecified; F10.188 Alcohol abuse with other alcohol-induced disorder; Y90.9 Presence of alcohol in blood, level not specified; E87.2 Acidosis; N39.0 Urinary tract infection, site not specified; E11.65 Type 2 diabetes mellitus with hyperglycemia; R00.0 Tachycardia, unspecified; E11.40 Type 2 diabetes mellitus with diabetic neuropathy, unspecified; I10 Essential (primary) hypertension; Z91.14 Patient's other noncompliance with medication regimen
CPT/HCPCS: 36415; 70030-TC; 71045; 83735; 85025; 86403; 87070; 87086; 87400; 93005; A4663; J7030

== ENCOUNTER 2020-09-17 10:22 | Emergency (ER) | payer OTHER ==
[~2020-09-17] VITALS: Ht 175.3 cm; Wt 81.6 kg
[~2020-09-17 10:22] MED LIST changes: -ASCO500T9 PO; -CLIN300C3 PO; +EZET10TA15 PO; -FOLI1TAB16 PO; +Folic Acid PO; -LACT1CAP57 PO; -METF-442 PO; +METO50TA16 PO; -PROT30LI PO; -SODI473S8 TP
--- NOTE | 2020-09-17 10:43 | NUR ---
PT IS IN ROOM #1B. DR DILL EVALUATED THE PT.
[2020-09-17 11:36] LABS: BASOPHILS % (AUTO) 0.8 % (0.0-2.0); EOSINOPHILS # (AUTO) 0.1 K/uL (0.0-0.7); EOSINOPHILS % (AUTO) 1.5 % (0.0-7.0); HEMOGLOBIN 14.7 g/dL (12.5-16.3); LYMPHOCYTES # (AUTO) 1.1 K/uL (20.0-40.0); LYMPHOCYTES % (AUTO) 19.8 % (20.5-51.5); MEAN CORPUSCULAR HEMOGLOBIN 32.4 uug (23.8-33.4); MEAN CORPUSCULAR HGB CONC 35 g/dL (32.5-36.3); MEAN CORPUSCULAR VOLUME 92.4 fL (73.0-96.2); MONOCYTES # (AUTO) 0.4 K/uL (2.0-10.0); MONOCYTES % (AUTO) 7.4 % (0.0-11.0); NEUTROPHILS # (AUTO) 4.1 K/uL (1.8-8.9); NEUTROPHILS % (AUTO) 70.5 % (38.5-71.5); PLATELET COUNT (AUTO) 108 K/uL (152-348); RED BLOOD CELL COUNT(AUTO) 4.54 MIL/uL (4.06-5.63); WHITE BLOOD COUNT (AUTO) 5.8 K/uL (3.6-10.2)
[2020-09-17 11:53] LABS: CREATININE 0.8 mg/dL (0.6-1.3); POTASSIUM 4.2 mmol/L (3.5-5.1)
[2020-09-17 11:58] LABS: BILIRUBIN,DIRECT 0.2 mg/dL (0.0-0.2); BILIRUBIN,TOTAL 0.6 mg/dL (0.2-1.0); TOTAL PROTEIN, SERUM 7.6 g/dL (6.4-8.2)
[2020-09-17] MEDS: INSULIN REGULAR, HUMAN 300 UNIT/3 ML VIAL SQ ONE (12:35)
--- NOTE | 2020-09-17 13:05 | NUR ---
Pt was d/c'D to home. D/C instructions given to the pt by dr Golden.
[2020-09-17 13:15] VITALS: BP 145/81
== END 2020-09-17 13:16 | disposition home or self-care (01) ==
LOC: ER 10:22
DX: R14.0 Abdominal distension (gaseous) (principal); D69.6 Thrombocytopenia, unspecified; E11.65 Type 2 diabetes mellitus with hyperglycemia; E11.40 Type 2 diabetes mellitus with diabetic neuropathy, unspecified; Z88.6 Allergy status to analgesic agent; Z88.5 Allergy status to narcotic agent; I10 Essential (primary) hypertension; Z79.899 Other long term (current) drug therapy; R74.01 Elevation of levels of liver transaminase levels; Z20.828 Contact with and (suspected) exposure to other viral communicable diseases
CPT/HCPCS: 36415; 80048; 80076; 83690; 85025; 96372; 99283; J1815; U0003; A4663

== ENCOUNTER 2021-01-02 10:32 | Inpatient (IN) | payer OTHER ==
[~2021-01-02] VITALS: Ht 175.3 cm; Wt 108.9 kg
--- NOTE | 2021-01-02 10:47 | NUR ---
MD@bedside, medical screening exam in progress
[2021-01-02] MEDS ORDERED: MORPHINE SULFATE 4 MG/1 ML DISP.SYRIN IV ONE (11:00)
[2021-01-02] MEDS ORDERED: MORPHINE SULFATE 4 MG/1 ML DISP.SYRIN ONE (11:12)
[2021-01-02 11:18] LABS: BASOPHILS % (AUTO) 0.4 % (0.0-2.0); EOSINOPHILS # (AUTO) 0.1 K/uL (0.0-0.7); EOSINOPHILS % (AUTO) 1.1 % (0.0-7.0); HEMATOCRIT 41.9 % (36.7-47.1); HEMOGLOBIN 14.5 g/dL (12.5-16.3); LYMPHOCYTES # (AUTO) 1.8 K/uL (20.0-40.0); LYMPHOCYTES % (AUTO) 33.4 % (20.5-51.5); MEAN CORPUSCULAR HEMOGLOBIN 32.2 uug (23.8-33.4); MEAN CORPUSCULAR HGB CONC 35 g/dL (32.5-36.3); MEAN CORPUSCULAR VOLUME 92.9 fL (73.0-96.2); MONOCYTES # (AUTO) 0.5 K/uL (2.0-10.0); MONOCYTES % (AUTO) 8.4 % (0.0-11.0); NEUTROPHILS # (AUTO) 3.1 K/uL (1.8-8.9); NEUTROPHILS % (AUTO) 56.7 % (38.5-71.5); PLATELET COUNT (AUTO) 84 K/uL (152-348); RED BLOOD CELL COUNT(AUTO) 4.51 MIL/uL (4.06-5.63); WHITE BLOOD COUNT (AUTO) 5.4 K/uL (3.6-10.2)
[2021-01-02 11:27] LABS: BILIRUBIN,DIRECT 0.2 mg/dL (0.0-0.2); BILIRUBIN,TOTAL 0.6 mg/dL (0.2-1.0); CREATININE 0.7 mg/dL (0.6-1.3); TOTAL PROTEIN, SERUM 8.2 g/dL (6.4-8.2)
[2021-01-02] MEDS ORDERED: VANCOMYCIN 1G/D5W 200 ML PIGGYBACK IV ONE (12:45)
[2021-01-02 12:48] LABS: EOSINOPHILS % (MANUAL) 1 % (0-8); LYMPHOCYTES % (MANUAL) 35 % (20-40); MONOCYTES % (MANUAL) 9 % (2-10); NEUTROPHILS % (MANUAL) 55 % (42-75)
[2021-01-02] MEDS ORDERED: VANCOMYCIN IV 200 ML ONE (12:49)
--- NOTE | 2021-01-02 13:59 | NUR ---
Patient is resting comfortably on gurney with eyes closed, NAD, pending admission vs transfer to another acute facility 11/05 patient's insurance
--- NOTE | 2021-01-02 14:18 | NUR ---
Patient ambulated to bathroom twice, +steady gait, no acute change in condition seen.
--- NOTE | 2021-01-02 14:34 | NUR ---
"OK to admit." per ER registration staff
--- NOTE | 2021-01-02 15:30 | NUR ---
RECEIVED PATIENT FROM ER VIA WHEELCHAIR. PATIENT AWAKE, ALERT AND ORIENTED x 4. VSS. PROPERTY INVENTORY LIST VERIFIED WITH PATIENT AND SIGNED. PHOTO OF RIGHT TOE TAKEN AND IN CHART. B/L LOWER EXTREMITY EDEMA NOTED. NO S/S OF DISTRESS OR SOB NOTED. DENIES PAIN AT THIS TIME. SAFETY PRECAUTIONS IN PLACE. WILL CONTINUE TO MONITOR.
[2021-01-02 15:42] VITALS: BP 135/80
[2021-01-02] MEDS ORDERED: ATEN50TA PO (15:47)
[2021-01-02] MEDS ORDERED: METF-442 PO (15:48)
[2021-01-02] MEDS ORDERED: GLIP10TA21 PO (15:48)
[2021-01-02] MEDS ORDERED: GLIM1TAB PO (15:50)
[2021-01-02] MEDS ORDERED: ASPI81TA31 PO (15:50)
[2021-01-02] MEDS ORDERED: BLOO-360 IN (15:51)
[2021-01-02] MEDS ORDERED: HYDROCODONE/APAP 5-325MG TABLET PO PRN ×2 (16:30→17:00)
[2021-01-02] MEDS ORDERED: ACETAMINOPHEN 325 MG TABLET PO PRN (16:30)
[2021-01-02] MEDS ORDERED: MAGNESIUM HYDROXIDE 30 ML LIQUID UDC PO PRN (16:30)
[2021-01-02] MEDS ORDERED: ONDANSETRON 4 MG/2 ML VIAL IV PRN (16:30)
[2021-01-02] MEDS ORDERED: DEXTROSE 50% 50 ML DISP.SYRIN IV PRN (16:30)
[2021-01-02] MEDS ORDERED: MORPHINE SULFATE 2 MG/1 ML DISP.SYRIN IV PRN (16:30)
[2021-01-02] MEDS ORDERED: Z GUARD REMEDY PASTE 57 GM TUBE TOP PRN (16:30)
[2021-01-02] MEDS: BLOOD SUGAR DIAGNOSTIC 1 EACH STRIP VI SCH ×2 (17:05→20:42)
[2021-01-02] MEDS: INSULIN REGULAR, HUMAN 300 UNIT/3 ML VIAL SQ PRN (17:06)
[2021-01-02] MEDS ORDERED: PIPERACILLIN SODIUM/TAZOBACTAM 3.375 G in IV DEXTROSE 5% 50 ML IV SCH ×2 (18:00→22:00)
[2021-01-02] MEDS: VANCOMYCIN IV 2,000 MG in IV DEXTROSE 5% 500 ML IV SCH (18:08)
[2021-01-02] MEDS ORDERED: TRAMADOL HCL 50 MG TABLET PO PRN (18:45)
[2021-01-02 20:33] VITALS: BP 123/81
[2021-01-02] MEDS: INSULIN REGULAR, HUMAN 300 UNITS/3 ML VIAL SQ PRN (21:04)
[2021-01-02] MEDS: MEROPENEM 1 G in IV NORMAL SALINE 100 ML IV SCH (21:09)
--- NOTE | 2021-01-02 22:05 | NUR ---
Received pt resting in bed. AAO x4. No acute distress noted. Denies pain/ discomfort. Right toe present with cellulitis and bilateral lower extremities with edema. Accucheck 267, insulin coverage given per sliding scale. Left forearm IV, running IV Merrem. Safety measures maintained. Call light and personal items within reach. Will continue to monitor.
[2021-01-03 04:00] VITALS: BP 137/76
[2021-01-03] MEDS: VANCOMYCIN IV 2,000 MG in IV DEXTROSE 5% 500 ML IV SCH ×2 (05:00→17:25)
[2021-01-03 06:48] LABS: BASOPHILS % (AUTO) 0.3 % (0.0-2.0); EOSINOPHILS % (AUTO) 0.8 % (0.0-7.0); HEMATOCRIT 44.5 % (36.7-47.1); HEMOGLOBIN 15.3 g/dL (12.5-16.3); MEAN CORPUSCULAR HEMOGLOBIN 32.3 uug (23.8-33.4); MEAN CORPUSCULAR HGB CONC 34 g/dL (32.5-36.3); MONOCYTES # (AUTO) 0.5 K/uL (2.0-10.0); MONOCYTES % (AUTO) 7.8 % (0.0-11.0); NEUTROPHILS # (AUTO) 4.3 K/uL (1.8-8.9); NEUTROPHILS % (AUTO) 74.1 % (38.5-71.5); PLATELET COUNT (AUTO) 83 K/uL (152-348); RED BLOOD CELL COUNT(AUTO) 4.74 MIL/uL (4.06-5.63); WHITE BLOOD COUNT (AUTO) 5.8 K/uL (3.6-10.2)
[2021-01-03 06:51] LABS: CREATININE 0.7 mg/dL (0.6-1.3); MAGNESIUM 1.7 mg/dL (1.8-2.4); PHOSPHOROUS 3.2 mg/dL (2.5-4.9); POTASSIUM 4.1 mmol/L (3.5-5.1)
[2021-01-03] MEDS: BLOOD SUGAR DIAGNOSTIC 1 EACH STRIP VI SCH ×4 (06:53→21:25)
[2021-01-03] MEDS: MEROPENEM 1 G in IV NORMAL SALINE 100 ML IV SCH ×3 (07:00→21:19)
[2021-01-03 09:00] VITALS: BP 126/73
[2021-01-03] MEDS ORDERED: ASPIRIN 81 MG TAB.CHEW PO SCH (09:00)
[2021-01-03] MEDS: INSULIN REGULAR, HUMAN 300 UNIT/3 ML VIAL SQ PRN ×3 (09:06→17:47)
[2021-01-03] MEDS: ATENOLOL 50 MG TABLET PO SCH (09:07)
[2021-01-03] MEDS: MAGNESIUM SULFATE/D5W 100 ML IV SCH ×2 (11:01→12:10)
[2021-01-03 11:32] VITALS: BP 139/77
--- NOTE | 2021-01-03 14:32 | NUR ---
WOUND CARE CONSULT: RECEIVED REQUEST FROM NURSING STAFF TO CHECK RT FOOT WITH BLEEDING AROUND RT GREAT TOENAIL, WHICH IS LOOSE, PRESENT ON ADMISSION. RECOMMEND DPM CONSULT. DR GUTHRIE NOTIFIED OF CONSULT REQUEST. PT IS INDEPENDENT WITH BED MOBILITY AND CONTINENT. MD IN AGREEMENT WITH PLAN OF CARE.
--- NOTE | 2021-01-03 15:54 | NUR ---
Cutter Head Sharpener Consultation: Cutter Head Sharpener consultation requested for homelessness. Patient is a 50 year old male. Per patient's medical records, patient came to the ED on 01/02 complaining of pain and swelling of both lower legs for the past 2 weeks. Patient's medical history includes DM and HTN. SW met with patient in his hospital room. Patient is awake, alert, oriented x 4, receptive to meeting with this SW. Patient reports being homeless since 2016. Patient states he has been living in his car. Patient's phone number is [phone]. 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 Patient reports leg pain and swelling; dx of cellulitis. Patient is independent with his ADL's, however reports not having any source of income and minimal money. Patient stated that he gets food on a daily basis from a food pantry at [employer]. Patient has a sister who lives in [facility], . Patient provided verbal consent for staff to speak with patient's sister. Patient denied hx of mental illness. Patient denied use of drugs. Patient reported drinking two 24 ounce beers on a daily basis, however the last time he drank was on December 06, after which he went to a detox program at [facility] for a couple of days. Patient stated that he hasn't drank since then. Patient denied use of cigarettes. SW explored patient's needs for community resources, and offered to provide a homeless resource packet. Patient was receptive to these resources. Patient also requested information on how to apply for disability income, and SW will provide this information. Discharge plans discussed, and patient stated that he will probably return to his previous living arrangement, which is his car. SW to work with case management to ensure a safe and proper discharge. SW will provide patient with the requested community resources. SW will remain available to the patient, as needed.
[2021-01-03 16:00] VITALS: BP 141/85
--- NOTE | 2021-01-03 16:48 | NUR ---
SW met with patient and provided him with the following resources: 1) Information on the nearest [facility] office to apply for GR and SSI: [facility] Office - [address] [place] [address], , . Copy of this resource was filed in patient's chart. 2) Homeless resource packet: the [phone] [facility] Winter Usp Program that provides locations of the winter shelters: [facility], [place], ; [facility], [address] [place], [address], ; First to Serve, [facility], [address], [address], ; [employer] [place], [facility], [address], [address], ; [employer] [place], [facility], [address], [address]; [phone]; [facility], [facility], [address] [place], [address], ; [facility] at Last [facility], [address], [address], [phone]; Home at Last [facility], [address], [address], ; [facility] Last [address] [place] [address], [address], [address], ; [employer] [place], [facility], [address] [place] [address], ; [employer] [place], [facility], [address] [place], [address], ; [employer] [place], [facility], [address] [place], [address], ; [facility], [address] [place] [address], , [facility], [address] [place], [place] , , [facility], [address], [place] [address], , [facility], [address] [place] [address], , [place], [address] [place] [address], , [facility], [address] [place] [address], ; the [facility] homeless directory which provides a list of places that individuals can go to throughout the week for hot meals, sack lunches, food pantries, and showers; a list of mental health clinics: [facility] [address] [place] [address], ; [facility] [address] [place] [address], ; [facility] [address] [place] [address], ; a list of medical clinics: [facility] [address], [place]. [place], ; [facility] [address] [facility] [address], [address], [place] [address]; [facility] [address] [facility] [place] [address], ; and a list of substance abuse programs: [facility] ; [facility] ; [facility] ; [facility] ; [facility] ; [facility] [phone]; [facility] [place] [phone]. SW also provided patient with information on locations of pharmacies. Patient signed the Homeless Patient Waiver form. SW filed the form in the patient's chart.
--- NOTE | 2021-01-03 19:30 | NUR ---
EOSS: Pt in assigned room in bed, A&Ox4, able to verbalize needs. No acute distress, no c/o of pain/discomfort at the time. Due medications given per order, no a/r noted. All needs met. Pt had total nail avulsion and wound care this afternoon with line rider Dr. Torres at bedside, tolerated well. Wound care order in place. L FA IV patent and intact. Call light and belongings within reach. Will endorse care to night clerk auditor nurse.
--- NOTE | 2021-01-03 19:45 | NUR ---
Received pt in bed, awake and verbally responsive, denies any pain or discomfort, no s/s of respiratory distress. Safety measures initiated, call light within reach, will continue to monitor.
[2021-01-03 20:27] VITALS: BP 141/85
[2021-01-03] MEDS: INSULIN REGULAR, HUMAN 300 UNITS/3 ML VIAL SQ PRN (21:29)
[2021-01-04 04:00] VITALS: BP 120/82
[2021-01-04 05:54] LABS: CREATININE 0.9 mg/dL (0.6-1.3); MAGNESIUM 1.7 mg/dL (1.8-2.4); POTASSIUM 3.9 mmol/L (3.5-5.1)
--- NOTE | 2021-01-04 05:56 | NUR ---
Pt in bed, awake and verbally responsive. No s/s of respiratory distress, denies any pain or discomfort. Medications tolerated well. Wound dressing intact. Safety measures maintained. Call light within reach. all needs attended.
[2021-01-04] MEDS: VANCOMYCIN IV 2,000 MG in IV DEXTROSE 5% 500 ML IV SCH (06:17)
[2021-01-04] MEDS: BLOOD SUGAR DIAGNOSTIC 1 EACH STRIP VI SCH ×2 (06:53→12:10)
--- NOTE | 2021-01-04 07:30 | NUR ---
Patient received in bed awake alert and oriented times 4. No sign of distress noted. Patient denies any pain. Safety precautions are in place. Will continue to monitor.
[2021-01-04] MEDS: INSULIN REGULAR, HUMAN 300 UNIT/3 ML VIAL SQ PRN ×2 (07:57→12:27)
[2021-01-04 08:20] VITALS: BP 128/78
[2021-01-04] MEDS: ATENOLOL 50 MG TABLET PO SCH (08:21)
[2021-01-04] MEDS: MEROPENEM 1 G in IV NORMAL SALINE 100 ML IV SCH ×2 (08:22→14:00)
--- NOTE | 2021-01-04 10:30 | NUR ---
Had to discontinue the Patient Magnesium IV administration because patient was not tolerating it well. Called pharmacy and spoke with Suzy (Pharmacist). Switched medication to PO. Will continue to monitor.
--- NOTE | 2021-01-04 10:37 | NUR ---
Patient reports that he has been having diarrhea. Will make MD aware. Will continue to monitor.
[2021-01-04 11:06] VITALS: BP 115/73
[2021-01-04] MEDS: MAGNESIUM SULFATE/D5W 100 ML IV SCH ×2 (11:30→12:03)
[2021-01-04] MEDS ORDERED: MAGNESIUM OXIDE 400 MG TABLET PO ONE (12:45)
[2021-01-04 14:34] VITALS: BP 122/67
--- NOTE | 2021-01-04 16:25 | NUR ---
Patient was picking on scab of the second toe on the right foot. The toes started to bleed. cleaned the toe and covered with a bandaid to minimize friction in the shoe. Will continue to monitor.
--- NOTE | 2021-01-04 16:30 | NUR ---
Patient walked out the facility by NALLELY. All belongings were given to him and belongings form signed. All paperwork signed and given to the patient. All medications given as ordered. Patient is stable, no sign of distress noted. Patient teaching completed.
== END 2021-01-04 16:30 | disposition home or self-care (01) | DRG 385 ==
LOC: ER 10:32 → MEDSURG3 15:00
PROVIDERS: ADMIT Internal Medicine; ATTEND Internal Medicine
PROC: 0HBRXZZ Excision of Toe Nail, External Approach (ICD-10-PCS; principal; 2021-01-03)
PROC: 0HDRXZZ Extraction of Toe Nail, External Approach (ICD-10-PCS; principal; 2021-01-03)
DX: L60.1 Onycholysis (principal); E11.40 Type 2 diabetes mellitus with diabetic neuropathy, unspecified; E11.65 Type 2 diabetes mellitus with hyperglycemia; Z79.84 Long term (current) use of oral hypoglycemic drugs; E66.9 Obesity, unspecified; E83.42 Hypomagnesemia; Z79.82 Long term (current) use of aspirin; Z59.0 Homelessness; L60.3 Nail dystrophy; Z20.822 Contact with and (suspected) exposure to COVID-19; Z68.35 Body mass index [BMI] 35.0-35.9, adult; I10 Essential (primary) hypertension
CPT/HCPCS: 36415; 70030-TC; 71045; 73630; 83735; 84100; 85025; 85651; 85730; 93005; A4663; G0378; J1815; J2185; J2270; J2543; J3370; J3475; J3490; J7030; J7040; J7060

== ENCOUNTER 2021-03-21 13:05 | Emergency (ER) | payer OTHER ==
[~2021-03-21] VITALS: Ht 172.7 cm; Wt 90.7 kg
[~2021-03-21 13:05] MED LIST changes: +ASPI81TA31 PO; +ATEN50TA PO; +BLOO-360 IN; -EZET10TA15 PO; -Folic Acid PO; +GLIM1TAB PO; +GLIP10TA21 PO; +METF-442 PO; -METO50TA16 PO; -MULT-24 PO; -THIA100T13 PO
--- NOTE | 2021-03-21 13:20 | NUR ---
at bedside for assessment
[2021-03-21 13:39] LABS: BASOPHILS # (AUTO) 0.1 K/uL (0.0-8.0); BASOPHILS % (AUTO) 0.9 % (0.0-2.0); EOSINOPHILS # (AUTO) 0.1 K/uL (0.0-0.7); EOSINOPHILS % (AUTO) 1.2 % (0.0-7.0); HEMATOCRIT 41.4 % (36.7-47.1); HEMOGLOBIN 14.4 g/dL (12.5-16.3); LYMPHOCYTES # (AUTO) 2.1 K/uL (20.0-40.0); LYMPHOCYTES % (AUTO) 34.2 % (20.5-51.5); MEAN CORPUSCULAR HGB CONC 35 g/dL (32.5-36.3); MONOCYTES # (AUTO) 0.4 K/uL (2.0-10.0); MONOCYTES % (AUTO) 6.5 % (0.0-11.0); NEUTROPHILS # (AUTO) 3.5 K/uL (1.8-8.9); NEUTROPHILS % (AUTO) 57.2 % (38.5-71.5); PLATELET COUNT (AUTO) 108 K/uL (152-348)
[2021-03-21 13:49] LABS: BILIRUBIN,DIRECT 0.3 mg/dL (0.0-0.2); BILIRUBIN,TOTAL 0.6 mg/dL (0.2-1.0); CREATININE 0.7 mg/dL (0.6-1.3); POTASSIUM 4.1 mmol/L (3.5-5.1)
--- NOTE | 2021-03-21 14:27 | NUR ---
Patient noted resting in bed at this time, nos signs of acute distress noted
--- NOTE | 2021-03-21 17:07 | NUR ---
Patient given dinner tray at this time, patient continues on observation for high blood alcohol level
[2021-03-21] MEDS ORDERED: SULF1TAB48 PO (18:04)
--- NOTE | 2021-03-21 19:03 | NUR ---
Received report from EDELMIRA Frey.
[2021-03-21] MEDS ORDERED: POTA20TA10 PO (20:16)
[2021-03-21] MEDS ORDERED: FURO20TA4 PO (20:16)
--- NOTE | 2021-03-21 21:30 | NUR ---
Patient ambulated with steady gait to restroom, no c/o n/v or dizziness. Patient now in bed, resting comfortably. Bed in lowest position for safety precautions.
--- NOTE | 2021-03-21 23:55 | NUR ---
Lab at bedside.
--- NOTE | 2021-03-22 01:04 | NUR ---
A/O x4, no SOB or labored breathing. Afebrile. No c/o pain/discomfort. Patient given written and verbal discharge instructions. Patient verbalizes understanding of instructions. Patient is ambulatory with steady gait. Refuses offer of [facility] placement. Patient given list of available shelters in surrounding area.
[2021-03-22 01:07] VITALS: BP 133/82
== END 2021-03-22 01:10 | disposition home or self-care (01) ==
LOC: ER 13:05
DX: R60.0 Localized edema (principal); Z59.0 Homelessness; F10.229 Alcohol dependence with intoxication, unspecified; Y90.8 Blood alcohol level of 240 mg/100 ml or more; I10 Essential (primary) hypertension; E11.40 Type 2 diabetes mellitus with diabetic neuropathy, unspecified; Z79.82 Long term (current) use of aspirin; Z79.84 Long term (current) use of oral hypoglycemic drugs
CPT/HCPCS: 36415; 70030-TC; 71045; 85025; 93005; A4663; G0480

== ENCOUNTER 2021-03-26 21:52 | Emergency (ER) | payer OTHER ==
[~2021-03-26] VITALS: Ht 175.3 cm; Wt 90.7 kg
[~2021-03-26 21:52] MED LIST changes: +FURO20TA4 PO; +POTA20TA10 PO
--- NOTE | 2021-03-26 22:18 | NUR ---
Pt. co left foot pain with bleeding. Started 2 months ago, just started bleeding today. Pain is in the heel of the foot. The heel of the foot has a large callous with a small opening in the center of the callous. The foot itself is not red or tender. No drainage visible. The pt describes the pain as 5/10 discomfort. Pt. denies any injury to his memory. Pt. states he has no medical hx but does drink a lot of alcohol.
--- NOTE | 2021-03-26 23:13 | NUR ---
Dr. Hobbs at bedside to do mse.
--- NOTE | 2021-03-26 23:53 | NUR ---
Called to notify banquet houseperson of pts. homeless status.
[2021-03-27] MEDS ORDERED: CHLORDIAZEPOXIDE HCL 25 MG CAPSULE PO ONE (00:15)
[2021-03-27] MEDS ORDERED: THIAMINE HCL 100 MG TABLET PO ONE (00:15)
[2021-03-27] MEDS ORDERED: CHLORDIAZEPOXIDE HCL 25 MG CAPSULE ONE (00:24)
[2021-03-27] MEDS ORDERED: THIAMINE HCL 100 MG TABLET ONE (00:24)
--- NOTE | 2021-03-27 00:30 | NUR ---
Pt. resting in bed. Food offered to pt. Vss. Will continue to monitor.
[2021-03-27 00:35] LABS: HEMATOCRIT 38.8 % (36.7-47.1); MEAN CORPUSCULAR HEMOGLOBIN 31.9 uug (23.8-33.4); MEAN CORPUSCULAR VOLUME 92.6 fL (73.0-96.2); PLATELET COUNT (AUTO) 77 K/uL (152-348)
[2021-03-27 00:48] LABS: MAGNESIUM 1.6 mg/dL (1.8-2.4)
[2021-03-27 00:54] LABS: BILIRUBIN,DIRECT 0.2 mg/dL (0.0-0.2); BILIRUBIN,TOTAL 0.5 mg/dL (0.2-1.0); CREATININE 0.8 mg/dL (0.6-1.3); TOTAL PROTEIN, SERUM 7.2 g/dL (6.4-8.2)
--- NOTE | 2021-03-27 01:02 | NUR ---
inside technical sales representative Suraj called to inform that Glucose is 319
[2021-03-27] MEDS ORDERED: MAGN400C PO (01:23)
[2021-03-27] MEDS ORDERED: CHLO25CA22 PO (01:23)
--- NOTE | 2021-03-27 01:49 | NUR ---
Patient discharged in stable condition. Written and verbal after care instructions given. Patient verbalizes understanding of instructions. Stressed follow up or return to ER for worsening s/s. Pt. provided homeless packet, offered food and clothes. Pt. declined to share where he was going and did not want placement. Pt. took food, socks, and the homeless resources packet but declined the clothes. Vss. All belongings went with pt.
[2021-03-27 01:56] VITALS: BP 138/82
== END 2021-03-27 01:57 | disposition home or self-care (01) ==
LOC: ER 21:52
DX: F10.229 Alcohol dependence with intoxication, unspecified (principal); Y90.6 Blood alcohol level of 120-199 mg/100 ml; L84 Corns and callosities; E11.65 Type 2 diabetes mellitus with hyperglycemia; E11.40 Type 2 diabetes mellitus with diabetic neuropathy, unspecified; Z79.84 Long term (current) use of oral hypoglycemic drugs; Z59.0 Homelessness; I10 Essential (primary) hypertension; F17.200 Nicotine dependence, unspecified, uncomplicated
CPT/HCPCS: 36415; 83735; 85025; 85730; G0480

== ENCOUNTER 2021-04-02 12:10 | Emergency (ER) | payer OTHER ==
[~2021-04-02] VITALS: Ht 175.3 cm; Wt 81.2 kg
[~2021-04-02 12:10] MED LIST changes: +CHLO25CA22 PO; +MAGN400C PO
--- NOTE | 2021-04-02 12:32 | NUR ---
MD@bedside, medical screening exam in progress
[2021-04-02 13:27] LABS: HEMATOCRIT 40.7 % (36.7-47.1); MEAN CORPUSCULAR HEMOGLOBIN 32.2 uug (23.8-33.4); MEAN CORPUSCULAR VOLUME 93.2 fL (73.0-96.2); PLATELET COUNT (AUTO) 83 K/uL (152-348)
[2021-04-02 13:30] LABS: CREATININE 0.7 mg/dL (0.6-1.3); POTASSIUM 4.1 mmol/L (3.5-5.1)
[2021-04-02 13:42] LABS: *AMPHETAMINE, URINE NEGATIVE (NEGATIVE); *CANNABINOID, URINE NEGATIVE (NEGATIVE); *COCCAINE, URINE NEGATIVE (NEGATIVE); *OPIATE, URINE NEGATIVE (NEGATIVE); *PHENCYCLIDINE SCREEN,URINE NEGATIVE (NEGATIVE)
[2021-04-02 13:45] LABS: BILIRUBIN,TOTAL 0.6 mg/dL (0.2-1.0); TOTAL PROTEIN, SERUM 8.2 g/dL (6.4-8.2)
[2021-04-02] MEDS ORDERED: PIPERACILLIN SODIUM/TAZOBACTAM 3.375 G in IV DEXTROSE 5% 50 ML IV ONE (14:15)
[2021-04-02] MEDS ORDERED: VANCOMYCIN 1G/D5W 200 ML PIGGYBACK IV ONE (14:15)
--- NOTE | 2021-04-02 14:19 | NUR ---
Lunch tray@bedside. Patient ambulates to bathroom 2x with steady gait, for disposition@this time, JEROME.
[2021-04-02] MEDS ORDERED: PIPERACILLIN/TAZOBACTAM/D5W 50 ML IV ONE (14:57)
[2021-04-02] MEDS ORDERED: VANCOMYCIN IV 200 ML ONE (14:57)
--- NOTE | 2021-04-02 15:41 | NUR ---
Patient is resting comfortably on gurney with eyes closed, NAD, pending med-surgical bed &n nurse@this time.
--- NOTE | 2021-04-02 17:18 | NUR ---
Patient is for possible transfer to another acute facility secondary to patient's insurance, pending transfer information still. Patient was updated accordingly.
--- NOTE | 2021-04-02 19:10 | NUR ---
Recieved report from EDELMIRA Jimenez for continuity of care.
--- NOTE | 2021-04-02 19:14 | NUR ---
Patient is resting comfortably on gurney with eyes closed. Patient ate dinner with good appetite. Patient will be tranferred to [facility]ER. Physician: Dr Adams accepted patient. Location: [facility] ER dept (per Caterina,pt's insurance family preservation caseworker [phone]) RN: Roxana (morning storage battery charger in [facility]) accepted nursing hands off report. S ambulance ETA = [phone] tonight with [facility] [phone]. Amado,dispatcher notified autho# [phone]
--- NOTE | 2021-04-02 19:20 | NUR ---
Hands off report given to EDELMIRA Massey and EDELMIRA Go. Patient is still for transfer to [facility] ER department.
--- NOTE | 2021-04-02 20:00 | NUR ---
Pt resting in bed comfortably. Vss. Will continue to monitor.
--- NOTE | 2021-04-02 20:30 | NUR ---
Spoke with pts. insurance. Pt to be transferred to room 2285A unit [address] at [facility].
--- NOTE | 2021-04-02 21:29 | NUR ---
Called and gave report to Efrem HICKEY at [facility].
--- NOTE | 2021-04-02 23:28 | NUR ---
Ambulance picked up pt to transport to [facility]. Report given to EMS.
== END 2021-04-02 23:34 | disposition short-term general hospital (02) ==
LOC: ER 12:10
DX: E11.69 Type 2 diabetes mellitus with other specified complication (principal); M86.8X7 Other osteomyelitis, ankle and foot; E11.621 Type 2 diabetes mellitus with foot ulcer; L97.429 Non-pressure chronic ulcer of left heel and midfoot with unspecified severity; E11.65 Type 2 diabetes mellitus with hyperglycemia; E11.40 Type 2 diabetes mellitus with diabetic neuropathy, unspecified; Z79.84 Long term (current) use of oral hypoglycemic drugs; S92.332A Displaced fracture of third metatarsal bone, left foot, initial encounter for closed fracture; S92.342A Displaced fracture of fourth metatarsal bone, left foot, initial encounter for closed fracture; X58.XXXA Exposure to other specified factors, initial encounter; Y93.9 Activity, unspecified; Y92.89 Other specified places as the place of occurrence of the external cause; F10.129 Alcohol abuse with intoxication, unspecified; Y90.8 Blood alcohol level of 240 mg/100 ml or more; I10 Essential (primary) hypertension; R60.0 Localized edema; Z59.0 Homelessness; Z20.822 Contact with and (suspected) exposure to COVID-19; F17.200 Nicotine dependence, unspecified, uncomplicated
CPT/HCPCS: 36415; 73630; 80053; 80307; 80320; 83880; 84484; 85025; 85651; 87426; 93970; 96365; 96367; 99284; J2543; J3370; 70030-TC; A4663; G0480; J7030

== ENCOUNTER 2021-11-04 13:45 | Emergency (ER) | payer OTHER ==
[~2021-11-04] VITALS: Ht 175.3 cm; Wt 81.2 kg
[~2021-11-04 13:45] MED LIST changes: +POTA-194 PO; -POTA20TA10 PO
[2021-11-04] MEDS ORDERED: TETRACAINE HCL 0.5% OPHT DROP 2 ML BOTTLE OP ONE (14:45)
[2021-11-04] MEDS ORDERED: FLUORESCEIN SODIUM 1 MG STRIP OP ONE (14:45)
[2021-11-04] MEDS ORDERED: FLUORESCEIN SODIUM 1 MG STRIP ONE ×2 (14:51→14:58)
[2021-11-04] MEDS ORDERED: TETRACAINE HCL 0.5% OPHT DROP 2 ML BOTTLE ONE ×2 (14:51→14:58)
[2021-11-04] MEDS ORDERED: GENT5DRO4 LEFTEYE (15:13)
[2021-11-04 15:20] VITALS: BP 121/77
--- NOTE | 2021-11-04 15:20 | NUR ---
Patient discharged to home in stable condition. Written and verbal after care instructions given. Patient verbalizes understanding of instructions. Stressed follow up or return to ER for worsening s/s.
== END 2021-11-04 15:21 | disposition home or self-care (01) ==
LOC: ER 13:45
DX: H10.9 Unspecified conjunctivitis (principal); E11.42 Type 2 diabetes mellitus with diabetic polyneuropathy; Z59.02 Unsheltered homelessness; Z79.84 Long term (current) use of oral hypoglycemic drugs; Z86.31 Personal history of diabetic foot ulcer; I10 Essential (primary) hypertension; R60.0 Localized edema; Z79.4 Long term (current) use of insulin; Z79.899 Other long term (current) drug therapy; F10.10 Alcohol abuse, uncomplicated; Z79.82 Long term (current) use of aspirin
CPT/HCPCS: A4663

== ENCOUNTER 2021-11-07 12:44 | Emergency (ER) | payer OTHER ==
[~2021-11-07] VITALS: Ht 175.3 cm; Wt 81.6 kg
[~2021-11-07 12:44] MED LIST changes: +GENT5DRO4 LEFTEYE
[2021-11-07] MEDS ORDERED: GENT5DRO4 LEFTEYE (12:57)
== END 2021-11-07 13:05 | disposition home or self-care (01) ==
LOC: ER 12:44
DX: H10.32 Unspecified acute conjunctivitis, left eye (principal); H57.12 Ocular pain, left eye; F17.200 Nicotine dependence, unspecified, uncomplicated; E11.40 Type 2 diabetes mellitus with diabetic neuropathy, unspecified; I10 Essential (primary) hypertension; Z79.84 Long term (current) use of oral hypoglycemic drugs; Z79.82 Long term (current) use of aspirin; Z79.899 Other long term (current) drug therapy
CPT/HCPCS: A4663

== ENCOUNTER 2022-01-09 00:45 | Emergency (ER) | payer OTHER ==
[~2022-01-09] VITALS: Ht 175.3 cm; Wt 100.7 kg
--- NOTE | 2022-01-09 01:25 | NUR ---
PATIENT STEADY OF GAIT AMBULATED TO THE BATHROOM ,VOIDED .
--- NOTE | 2022-01-09 01:33 | NUR ---
DR:NEELAM AT B/S ,EXAMINED PATIENT .
[2022-01-09] MEDS ORDERED: CLINDAMYCIN HCL 150 MG CAPSULE PO ONE (01:45)
[2022-01-09] MEDS ORDERED: CLIN300C12 PO (01:49)
[2022-01-09] MEDS ORDERED: CLINDAMYCIN HCL 300 MG CAPSULE ONE (02:17)
[2022-01-09] MEDS ORDERED: MAG HYDROX/AL HYDROX/SIMETH 30 ML LIQUID UDC ONE (03:09)
[2022-01-09] MEDS ORDERED: LIDOCAINE VISCUS 2% 15 ML UDC ONE (03:09)
--- NOTE | 2022-01-09 03:12 | NUR ---
GIVEN MAALOX + LIDOCANINE VISCUS C/O STOMACH HEARTBURN.SEE EMAR.
[2022-01-09] MEDS ORDERED: LIDOCAINE VISCUS 2% 15 ML UDC MM ONE (03:15)
[2022-01-09] MEDS ORDERED: MAG HYDROX/AL HYDROX/SIMETH 30 ML LIQUID UDC PO ONE (03:15)
--- NOTE | 2022-01-09 03:33 | NUR ---
Patient discharged to home in stable condition. Written and verbal after care instructions given. Patient verbalizes understanding of instructions.WENT HOME WITH ALL BELONGINGS . Stressed follow up or return to ER for worsening s/s.PATIENT WENT HOME AMBULATORY STEADY OF GAIT .
[2022-01-09 03:35] VITALS: BP 100/75
== END 2022-01-09 03:37 | disposition home or self-care (01) ==
LOC: ER 00:49
DX: S80.812A Abrasion, left lower leg, initial encounter (principal); W54.0XXA Bitten by dog, initial encounter; Y92.89 Other specified places as the place of occurrence of the external cause; E11.621 Type 2 diabetes mellitus with foot ulcer; L97.429 Non-pressure chronic ulcer of left heel and midfoot with unspecified severity; Z79.84 Long term (current) use of oral hypoglycemic drugs; Z59.00 Homelessness unspecified; F17.210 Nicotine dependence, cigarettes, uncomplicated; E11.65 Type 2 diabetes mellitus with hyperglycemia; R60.0 Localized edema; E11.40 Type 2 diabetes mellitus with diabetic neuropathy, unspecified; L97.521 Non-pressure chronic ulcer of other part of left foot limited to breakdown of skin; F10.10 Alcohol abuse, uncomplicated
CPT/HCPCS: A4663

== ENCOUNTER 2022-04-13 19:14 | Emergency (ER) | payer OTHER ==
[~2022-04-13] VITALS: Ht 175.3 cm; Wt 90.7 kg
[~2022-04-13 19:14] MED LIST changes: +CLIN300C12 PO
[2022-04-13 21:29] LABS: HEMATOCRIT 36.7 % (36.7-47.1); MEAN CORPUSCULAR HEMOGLOBIN 32.5 uug (23.8-33.4); MEAN CORPUSCULAR VOLUME 91.6 fL (73.0-96.2); PLATELET COUNT (AUTO) 105 K/uL (152-348)
[2022-04-13 21:43] LABS: BILIRUBIN,DIRECT 0.2 mg/dL (0.0-0.2); BILIRUBIN,TOTAL 0.7 mg/dL (0.2-1.0); CREATININE 1.4 mg/dL (0.6-1.3); POTASSIUM 4.1 mmol/L (3.5-5.1); TOTAL PROTEIN, SERUM 8.2 g/dL (6.4-8.2)
[2022-04-13 22:29] LABS: ABG BASE EXCESS -3.7 mmol/L; ABG HCO3 21.2 mmol/L; ABG PCO2 38.1 mmHg (35.0-45.0); ABG PH 7.364 (7.350-7.450); ABG PO2 64.7 mmHg (75.0-100.0); ABG SITE RIGHT RADIAL; ABG TOTAL HEMOGLOBIN 13.3 G/dL (13.5-18.0); COHb 0.7 % (0.5-1.5); MetHb 0.3 % (0.0-1.5); O2Hb 91.6 % (94.0-97.0); VENT MODE room air
--- NOTE | 2022-04-13 23:30 | NUR ---
PLACED DRESSING ON BILATERAL FOOT FOR ULCER ON BILATERAL HEELS.
[2022-04-13 23:58] VITALS: BP 128/78
== END 2022-04-13 23:40 | disposition home or self-care (01) ==
LOC: ER 19:19
DX: R60.0 Localized edema (principal); E11.65 Type 2 diabetes mellitus with hyperglycemia; E11.40 Type 2 diabetes mellitus with diabetic neuropathy, unspecified; Z79.84 Long term (current) use of oral hypoglycemic drugs; E11.621 Type 2 diabetes mellitus with foot ulcer; L97.428 Non-pressure chronic ulcer of left heel and midfoot with other specified severity; E87.4 Mixed disorder of acid-base balance
CPT/HCPCS: 36415; 36600; 71045; 82803; 85025; 93005; A4663

== ENCOUNTER 2023-05-10 11:20 | Emergency (ER) | payer OTHER ==
[~2023-05-10] VITALS: Ht 175.3 cm; Wt 103.4 kg
[2023-05-10] MEDS ORDERED: LIDOCAINE 2% (GLYDO= UROJET) 10 ML JELLY MM ONE ×2 (13:15→13:28)
[2023-05-10 14:37] LABS: *BLOOD, URINE 3+ (NEGATIVE); *CLARITY,URINE CLOUDY (CLEAR); *COLOR,URINE Other (YELLOW); *KETONES,URINE TRACE (NEGATIVE); LEUKOCYTE ESTERASE ,URINE NEGATIVE (NEGATIVE); NITRITE, URINE POSITIVE (NEGATIVE)
[2023-05-10 14:43] LABS: *BILIRUBIN,URIN 3+ (NEGATIVE); *PROTEIN,URINE 3+ (NEGATIVE); UGLUCOSE 1+ (NEGATIVE)
[2023-05-10 16:10] LABS: BACTERIA,URINE MANY /HPF (NONE SEEN); RBC,URINE TNTC /HPF (0-3); SQUAMOUS EPITHELIAL CELL,UR MODERATE /HPF (NONE SEEN); WBC,URINE 0-3 /HPF (0-3)
[2023-05-10 16:11] LABS: CALCIUM OXALATE CRYSTALS,UR FEW /HPF (NONE SEEN)
[2023-05-10] MEDS ORDERED: PHEN-705 PO (17:58)
[2023-05-10] MEDS ORDERED: SULF1TAB48 PO (17:58)
[2023-05-10] MEDS ORDERED: PHENAZOPYRIDINE HCL 100 MG TABLET ONE (17:59)
[2023-05-10] MEDS ORDERED: AMOXICILLIN-CLAVUL 875-125MG TABLET ONE (17:59)
[2023-05-10] MEDS ORDERED: PHENAZOPYRIDINE HCL 100 MG TABLET PO ONE (18:00)
[2023-05-10] MEDS ORDERED: SULFAMETH/TRIMETH 800/160 MG TABLET PO ONE (18:00)
[2023-05-10] MEDS ORDERED: AMOXICILLIN-CLAVUL 875-125MG TABLET PO ONE (18:00)
[2023-05-10] MEDS ORDERED: SULFAMETH/TRIMETH 800/160 MG TABLET ONE (18:03)
[2023-05-10 20:20] VITALS: BP 108/74; O2SAT 98
== END 2023-05-10 20:20 | disposition home or self-care (01) ==
LOC: ER 11:20
DX: R31.9 Hematuria, unspecified (principal); E11.9 Type 2 diabetes mellitus without complications; Z88.5 Allergy status to narcotic agent; Z79.2 Long term (current) use of antibiotics; Z79.899 Other long term (current) drug therapy; Z79.82 Long term (current) use of aspirin; Z59.00 Homelessness unspecified
CPT/HCPCS: A4663; C1758